=== PATIENT | male | born 1945 | race Caucasian/White ===

== ENCOUNTER 2024-07-29 13:23 | Inpatient (IN) | payer MEDICARE ==
[~2024-07-29] VITALS: Ht 167.6 cm; Wt 54.1 kg
[2024-07-29] MEDS ORDERED: Ipratropium Bromide INH 0.02% 0.5 mg/2.5ML Vial INH SCH (15:00)
[2024-07-29] MEDS ORDERED: NS 1,000 ML IV SCH ×2 (15:00→18:55)
[2024-07-29] MEDS ORDERED: Ondansetron HCl 2 MG / ML 2ML Vial IV ONE (15:00)
[2024-07-29] MEDS ORDERED: Albuterol 2.5 MG/3 ML VIAL INH SCH (15:00)
[2024-07-29 15:06] LABS: BASOPHILS ABSOLUTE AUTO 0.03 K/mm3 (0.00-0.23); BASOPHILS PERCENT AUTO 0 % (0-2); EOSINOPHILS PERCENT AUTO 0 % (0-6); Hemoglobin 15.4 g/dL (13.5-17.5); IMMATURE GRAN ABSOLUTE AUTO 0.04 K/mm3 (0.00-0.10); IMMATURE GRAN PERCENT AUTO 0 % (0-1); LYMPHOCYTES ABSOLUTE AUTO 1.22 K/mm3 (0.84-5.20); LYMPHOCYTES PERCENT AUTO 14 % (21-46); MONOCYTES ABSOLUTE AUTO 1.04 K/mm3 (0.16-1.47); MONOCYTES PERCENT AUTO 12 % (4-13); Mean Corpuscular HGB 31.6 pg (26.0-34.0); Mean Corpuscular HGB Conc 34.2 g/dL (31.5-36.5); Mean Corpuscular Volume 92 fL (80-100); Mean Platelet Volume 11.8 fL (9.1-12.4); NEUTROPHILS ABSOLUTE AUTO 6.62 K/mm3 (1.96-9.15); NEUTROPHILS PERCENT AUTO 74 % (41-73); Platelet Count 242 K/mm3 (150-400); RDW Coefficient Variation 12.4 % (11.7-14.2); RDW Standard Deviation 42.5 fL (35.1-46.3); Red Blood Cell Count 4.88 M/mm3 (4.30-5.90); White Blood Cell Count 8.95 K/mm3 (4.00-11.30)
[2024-07-29 15:13] LABS: Albumin, Blood 3.9 g/dL (3.4-5.0); Albumin/Globulin Ratio 1.1 (0.8-1.8); Bun/Creatinine Ratio 18.4 (12.0-20.0); Calcium, Blood 9.1 mg/dL (8.5-10.1); Creatinine, Blood 0.76 mg/dL (0.60-1.20); Globulin, Blood 3.5 g/dL (2.2-4.0); Potassium, Blood 3.7 mmol/L (3.5-5.5); Total Protein, Blood 7.4 g/dL (6.4-8.2)
[2024-07-29] MEDS ORDERED: Acetaminophen 325 MG TABLET PO ONE (15:35)
[2024-07-29] MEDS ORDERED: Rapaflo8 MG PO (16:06)
[2024-07-29] MEDS ORDERED: MONT10T PO (16:06)
[2024-07-29] MEDS ORDERED: DONEPEZIL HCL5 M2 PO (16:06)
[2024-07-29] MEDS ORDERED: TRAZ50 PO (16:07)
[2024-07-29] MEDS ORDERED: Acetaminophen 500 MG Tab PO PRN (18:45)
[2024-07-29] MEDS ORDERED: Albuterol 2.5 MG/3 ML VIAL INH PRN (18:45)
[2024-07-29] MEDS ORDERED: Guaifenesin/Dextromethorphan Syrup 5 ML UDC PO PRN (19:10)
[2024-07-29] MEDS ORDERED: Guaifenesin/Dextromethorphan Syrup 5 ML UDC PO ONE (19:10)
[2024-07-29] MEDS ORDERED: Remdesivir (EUA) 200 MG in NS 250 ML IV ONE (19:30)
[2024-07-29] MEDS ORDERED: TraZODone HCl 50 MG Tab PO SCH (21:00)
[2024-07-29 21:02] VITALS: BP 128/62
--- NOTE | 2024-07-29 23:35 | NUR ---
TRANSFER SUMMARY: PT AOX4 WITH SOME CONFUSION AND FORGETFULNESS, WITHDRAWN AND SLOW SPEECH. PT TAKING SIPS OF WATER AND MEDICATIONS WELL. TRANSFERRED SELF FROM GURNEY TO BED WITH UNSTEADY GAIT. FAMILY AT BEDSIDE STATED THAT PT IS NORMALLY ROOM AIR, STEADY GAIT, AND ABLE TO CONVERSATE WELL. PT IN BED SLEEPING, ORIENTED TO ROOM, BED ALARM IN PLACE, BED IN LOWEST POSITION, CALL LIGHT IN REACH. CONTINUING CARE.
--- NOTE | 2024-07-30 04:33 | NUR ---
SHIFT SUMMARY: PT AOX4 WITH CONFUSION AND FORGETFULNESS. ANSWERS QUESTIONS APPROPRIATELY BUT CAN BE FORGETFUL. PT CAME UP COUGHING EXCESSIVELY WITH LITTLE PRODUCTION. PT DAUGHTER REQ BREATHING TX AND RT GAVE. PT SATTING IN THE MID 80S ON 2L O2, RT PUT ON 6L AND HIGH FLOW NC. PT SATTING 96. AFTER COUGHING SUBSIDED, PT STARTED SATTING IN THE MID 90'S, O2 TITRATED DOWN TO 2L, SATTING LOW TO MID 90'S. PT HAD SLIGHT FEVER AND COMPLAINED OF CHILLS, MEDICATED PER EMR. PT UNSTEADY WHILE TRYING TO STAND AND USE URINAL, LITTLE, DARK OUTPUT. PT SLEEPING WELL, PT IN BED, BED IN LOWEST POSITION, CALL LIGHT IN REACH. CONTINUING CARE.
[2024-07-30 05:08] VITALS: BP 115/59
[2024-07-30 07:17] VITALS: BP 93/53
[2024-07-30] MEDS ORDERED: Montelukast Sodium 10 MG Tab PO SCH (09:00)
[2024-07-30] MEDS ORDERED: Enoxaparin 40 MG/0.4 ML SYR SC SCH (09:00)
[2024-07-30] MEDS ORDERED: Tamsulosin HCl 0.4 MG Cap PO SCH (09:00)
[2024-07-30] MEDS ORDERED: Donepezil HCl 5 MG Tab PO SCH (09:00)
[2024-07-30] MEDS ORDERED: dexAMETHasone 4 MG TAB PO SCH (09:00)
[2024-07-30 10:53] LABS: BASOPHILS ABSOLUTE AUTO 0.03 K/mm3 (0.00-0.23); BASOPHILS PERCENT AUTO 0 % (0-2); EOSINOPHILS PERCENT AUTO 0 % (0-6); Hematocrit 39.3 % (37.0-53.0); Hemoglobin 13.4 g/dL (13.5-17.5); IMMATURE GRAN ABSOLUTE AUTO 0.05 K/mm3 (0.00-0.10); IMMATURE GRAN PERCENT AUTO 0 % (0-1); LYMPHOCYTES ABSOLUTE AUTO 1.01 K/mm3 (0.84-5.20); LYMPHOCYTES PERCENT AUTO 8 % (21-46); MONOCYTES ABSOLUTE AUTO 0.69 K/mm3 (0.16-1.47); MONOCYTES PERCENT AUTO 6 % (4-13); Mean Corpuscular HGB 31.8 pg (26.0-34.0); Mean Corpuscular HGB Conc 34.1 g/dL (31.5-36.5); Mean Corpuscular Volume 93 fL (80-100); NEUTROPHILS ABSOLUTE AUTO 10.19 K/mm3 (1.96-9.15); NEUTROPHILS PERCENT AUTO 85 % (41-73); Platelet Count 186 K/mm3 (150-400); RDW Coefficient Variation 12.5 % (11.7-14.2); Red Blood Cell Count 4.22 M/mm3 (4.30-5.90); White Blood Cell Count 11.97 K/mm3 (4.00-11.30)
[2024-07-30 11:16] LABS: Bun/Creatinine Ratio 19.4 (12.0-20.0); Creatinine, Blood 0.72 mg/dL (0.60-1.20); Potassium, Blood 3.5 mmol/L (3.5-5.5)
[2024-07-30 16:07] VITALS: BP 100/55
--- NOTE | 2024-07-30 18:32 | NUR ---
MAKES NEEDS KNOWN, DAUGHTER AT BEDSIDE, PATIENT CONTIUES TO COUGH, TIGHT HARSH LUNG SOUNDS. BED ALARM ON WHEN DAUGHTER NOT AT BEDSIDE, NO ACUTE CHANGES, CALL LIGHT WITH IN REACH
[2024-07-30 20:20] VITALS: BP 89/50
[2024-07-30] MEDS ORDERED: Remdesivir (EUA) 100 MG in NS 250 ML IV SCH (21:00)
[2024-07-31 00:59] VITALS: BP 88/48
[2024-07-31 02:36] VITALS: BP 110/70
--- NOTE | 2024-07-31 05:02 | NUR ---
SHIFT SUMMARY: PT AOX3-4 WITH SOME CONFUSION. DAUGHTER STATES THAT HE SUNDOWNS AND EARLY DEMENTIA AT BASELINE. CALLS APPROPRIATELY INTERMITTENTLY, CONFUSED BUT PLEASANT AND EASILY REORIENTED. CAN ANSWER QUESTIONS APPROPRIATELY IF ASKED AND GIVEN TIME. TOLERATING MEDICATIONS WELL AND ASSISTED TO THE BATHROOM WITH SOME UNMEASURED VOIDS. PT TAKES OFF O2 REGULARLY AND SATS WELL ON RA BUT PUT BACK ON O2 DUE TO DESATTING WHILE SLEEPING AT TIMES. BED ALARM IN PLACE. PT IN BED RESTING, BED IN LOWEST POSITION, CALL LIGHT IN REACH. NO ACUTE EVENTS OVERNIGHT. CONTINUING CARE.
[2024-07-31 05:59] LABS: BASOPHILS ABSOLUTE AUTO 0.02 K/mm3 (0.00-0.23); BASOPHILS PERCENT AUTO 0 % (0-2); EOSINOPHILS PERCENT AUTO 0 % (0-6); Hematocrit 47.6 % (37.0-53.0); Hemoglobin 16.1 g/dL (13.5-17.5); IMMATURE GRAN ABSOLUTE AUTO 0.06 K/mm3 (0.00-0.10); IMMATURE GRAN PERCENT AUTO 1 % (0-1); LYMPHOCYTES ABSOLUTE AUTO 0.89 K/mm3 (0.84-5.20); LYMPHOCYTES PERCENT AUTO 7 % (21-46); MONOCYTES ABSOLUTE AUTO 0.44 K/mm3 (0.16-1.47); MONOCYTES PERCENT AUTO 4 % (4-13); Mean Corpuscular HGB 31.7 pg (26.0-34.0); Mean Corpuscular HGB Conc 33.8 g/dL (31.5-36.5); Mean Corpuscular Volume 94 fL (80-100); Mean Platelet Volume 12.3 fL (9.1-12.4); NEUTROPHILS ABSOLUTE AUTO 10.71 K/mm3 (1.96-9.15); NEUTROPHILS PERCENT AUTO 88 % (41-73); Platelet Count 207 K/mm3 (150-400); RDW Coefficient Variation 12.4 % (11.7-14.2); RDW Standard Deviation 42.9 fL (35.1-46.3); Red Blood Cell Count 5.08 M/mm3 (4.30-5.90); White Blood Cell Count 12.12 K/mm3 (4.00-11.30)
[2024-07-31 06:18] LABS: Calcium, Blood 8.6 mg/dL (8.5-10.1); Creatinine, Blood 0.6 mg/dL (0.60-1.20)
[2024-07-31 07:14] VITALS: BP 112/45
[2024-07-31] MEDS ORDERED: DORZOLAMIDE-TIM10 ML LEFTEYE (13:10)
[2024-07-31] MEDS ORDERED: ALBU2.5V5 INH (13:31)
--- NOTE | 2024-07-31 14:10 | NUR ---
DISCHARGE NOTE: WENT OVER DISCHARGE WITH PATIENT AND HIS DAUGHTER AT BEDSIDE. PATIENT WAS ALREADY DRESSED AND BELONGINGS COLLECTED; IV REMOVED. PATIENT WAS WHEELED DOWN BY MANAGER PHYSICAL AND DAUGHTER. NO SIGNS OR SYMPTOMS OF DISTRESS WITH DISCHARGE.
== END 2024-07-31 14:08 | disposition home health service (06) | DRG 177 ==
LOC: ER 13:23 → MEDS 13:24
PROVIDERS: Internal Medicine; Physician Assistant; ADMIT Student in an Organized Health Care Education/Training Program
PROC: XW033E5 Introduction of Remdesivir Anti-infective into Peripheral Vein, Percutaneous Approach, New Technology Group 5 (ICD-10-PCS; principal; 2024-07-29)
PROC: 3E0DX3Z Introduction of Anti-inflammatory into Mouth and Pharynx, External Approach (ICD-10-PCS; 2024-07-30)
DX: U07.1 COVID-19 (principal); J12.82 Pneumonia due to coronavirus disease 2019; J96.01 Acute respiratory failure with hypoxia; F03.90 Unspecified dementia, unspecified severity, without behavioral disturbance, psychotic disturbance, mood disturbance, and anxiety; N40.0 Benign prostatic hyperplasia without lower urinary tract symptoms; K21.9 Gastro-esophageal reflux disease without esophagitis
CPT/HCPCS: 36415; 71046; 80048; 80053; 85025; 93005; 93010; 94640; 94644; 94664; 94761; 94762; 96372; 96374; 97110-CQ; 97162; 97530; 99285-25; A9270; G0378; J0248; J1650; J2405; J7030; J7050